=== PATIENT | male | born 1930 | race Caucasian/White ===

== ENCOUNTER 2016-09-27 11:48 | Inpatient (IN) | payer MEDICARE, OTHER ==
[~2016-09-27] VITALS: Ht 172.7 cm; Wt 51.0 kg
[2016-09-27] MEDS ORDERED: ONDANSETRON 4 MG VIAL IV PRN (12:45)
[2016-09-27] MEDS ORDERED: ACETAMINOPHEN 325 MG TAB PO PRN (12:45)
[2016-09-27] MEDS ORDERED: DOCUSATE SOD 100 MG CAP PO PRN (12:45)
[2016-09-27] MEDS ORDERED: SALINE FLUSH 10 ML FLUSH PRN (12:45)
[2016-09-27 13:25] VITALS: RESP 18
[2016-09-27 13:57] VITALS: BP_SYST 110; BP_SYST 120; RESP 16; TEMP 97.7
[2016-09-27 14:03] VITALS: BP_SYST 110
[2016-09-27 14:06] VITALS: BP_SYST 109; BP_SYST 110; BP_SYST 112
[2016-09-27] MEDS ORDERED: MONTELUKAST 10 MG TAB PO PRN (14:10)
[2016-09-27 14:11] VITALS: BMI 17.9
[2016-09-27] MEDS: NEB-BUDESONIDE 0.5 MG INH SCH ×2 (14:14→18:29)
[2016-09-27] MEDS ORDERED: MISSING DOSE XX ONE (14:45)
[2016-09-27] MEDS: Furosemide 40 MG/4 ML VIAL IV SCH (15:00)
[2016-09-27] MEDS: HCTZ 12.5 MG CAP PO SCH (15:01)
[2016-09-27] MEDS: ASPIRIN 81 MG CHEW TAB PO SCH (15:01)
[2016-09-27] MEDS: DIGOXIN 0.125 MG TAB PO SCH (15:02)
[2016-09-27] MEDS: NEB-XOPENEX 0.63 MG/3 ML INH SCH ×2 (16:10→18:29)
[2016-09-27 19:42] VITALS: BP_SYST 95; RESP 18; TEMP 97.9
[2016-09-27] MEDS: TAMSULOSIN 0.4 MG CAP PO SCH (20:59)
[2016-09-27] MEDS: Finasteride 5 MG TAB PO SCH (20:59)
[2016-09-27] MEDS: SALINE FLUSH 10 ML FLUSH SCH (20:59)
[2016-09-27 23:20] VITALS: BP_SYST 101; RESP 20; TEMP 97.6
[2016-09-28] VITALS (7 sets, daily range): BP systolic 92–120; RESP 16–20; TEMP 97.4–98.7; Ht 172.7 cm; Wt 51.0 kg
[2016-09-28] MEDS: SODIUM CHLORIDE 0.9% FLUSH BAG 500 ML IV SCH (06:00)
[2016-09-28] MEDS: NEB-BUDESONIDE 0.5 MG INH SCH ×2 (06:51→18:22)
[2016-09-28] MEDS: NEB-XOPENEX 0.63 MG/3 ML INH SCH ×3 (06:51→22:37)
[2016-09-28] MEDS: HCTZ 12.5 MG CAP PO SCH (08:46)
[2016-09-28] MEDS: ENOXAPARIN 30 MG/0.3 ML SYR SUBQ SCH (08:53)
[2016-09-28] MEDS: SALINE FLUSH 10 ML FLUSH SCH ×2 (08:53→20:24)
[2016-09-28] MEDS: Furosemide 40 MG/4 ML VIAL IV SCH ×2 (08:53→21:10)
[2016-09-28] MEDS: DIGOXIN 0.125 MG TAB PO SCH (12:24)
[2016-09-28] MEDS ORDERED: METOLAZONE 2.5 MG TAB PO ONE (15:55)
[2016-09-28] MEDS: Finasteride 5 MG TAB PO SCH (20:24)
[2016-09-28] MEDS: TAMSULOSIN 0.4 MG CAP PO SCH (20:24)
[2016-09-29] MEDS: SODIUM CHLORIDE 0.9% FLUSH BAG 500 ML IV SCH (02:29)
[2016-09-29 03:00] VITALS: BP_SYST 101; RESP 18; TEMP 97.5
[2016-09-29] MEDS: NEB-XOPENEX 0.63 MG/3 ML INH SCH ×2 (07:33→14:44)
[2016-09-29] MEDS: NEB-BUDESONIDE 0.5 MG INH SCH (07:33)
[2016-09-29 07:36] VITALS: BP_SYST 108; RESP 20
[2016-09-29] MEDS: ENOXAPARIN 30 MG/0.3 ML SYR SUBQ SCH (07:53)
[2016-09-29] MEDS ORDERED: METOLAZONE 5 MG TAB PO ONE (07:55)
[2016-09-29] MEDS: ASPIRIN 81 MG CHEW TAB PO SCH (07:55)
[2016-09-29] MEDS: SALINE FLUSH 10 ML FLUSH SCH (07:55)
[2016-09-29] MEDS: Furosemide 40 MG/4 ML VIAL IV SCH ×2 (07:55→15:50)
[2016-09-29] MEDS ORDERED: FOLIC ACID 1 MG TAB PO SCH (09:00)
[2016-09-29] MEDS ORDERED: CYANOCOBALAMIN 1000 MCG/ML VIAL IM SCH (09:00)
[2016-09-29 11:37] VITALS: BP_SYST 106; RESP 18; TEMP 97.8
[2016-09-29] MEDS: DIGOXIN 0.125 MG TAB PO SCH (11:43)
[2016-09-29 15:57] VITALS: BP_SYST 112; TEMP 97.9
== END 2016-09-29 16:57 | disposition home or self-care (01) | DRG 291 ==
LOC: ENRESERVTM → ENRESERVDT → ENPENDDIS 12:41 → TBA 12:41 → 4THE 13:06
PROVIDERS: ADMIT Internal Medicine; ATTEND Internal Medicine
PROC: 0W9B3ZX Drainage of Left Pleural Cavity, Percutaneous Approach, Diagnostic (ICD-10-PCS; principal; 2016-09-27)
DX: I11.0 Hypertensive heart disease with heart failure (principal); J96.01 Acute respiratory failure with hypoxia; J90 Pleural effusion, not elsewhere classified; D58.9 Hereditary hemolytic anemia, unspecified; I27.2 Other secondary pulmonary hypertension; K90.9 Intestinal malabsorption, unspecified; I50.33 Acute on chronic diastolic (congestive) heart failure; I35.0 Nonrheumatic aortic (valve) stenosis; I07.1 Rheumatic tricuspid insufficiency; I48.2 Chronic atrial fibrillation; Z91.14 Patient's other noncompliance with medication regimen; R16.1 Splenomegaly, not elsewhere classified; E03.9 Hypothyroidism, unspecified; N40.0 Benign prostatic hyperplasia without lower urinary tract symptoms; Z79.82 Long term (current) use of aspirin; Z87.891 Personal history of nicotine dependence
CPT/HCPCS: 36600; 71010; 71020; 80048; 80053; 80061; 81003; 82150; 82550; 82607; 82728; 82746; 82803; 82945; 83540; 83615; 83735; 83880; 83986; 84155; 84439; 84443; 84466; 84484; 85025; 85046; 87071; 87102; 87116; 87205; 87206; 88108; 89051; 93005; 93306; 94640; 94799; 99223; 99232

== ENCOUNTER 2016-10-01 17:25 | Inpatient (IN) | payer MEDICARE, OTHER ==
[~2016-10-01] VITALS: Ht 172.7 cm; Wt 50.1 kg
[2016-10-01] MEDS ORDERED: ASPIRIN 81 MG CHEW TAB ONE (17:40)
[2016-10-01] MEDS ORDERED: ENOXAPARIN 40 MG/0.4 ML SYR SUBQ STA (21:39)
[2016-10-01] MEDS ORDERED: MORPHINE 2 MG/ML SYR IV PRN (21:40)
[2016-10-01] MEDS ORDERED: SALINE FLUSH 10 ML FLUSH PRN (21:40)
[2016-10-01] MEDS ORDERED: NITROGLYCERIN 50 MG/250 ML IV PRN (21:40)
[2016-10-01] MEDS ORDERED: ASPIRIN 81 MG CHEW TAB PO ONE (21:40)
[2016-10-01] MEDS ORDERED: TRAMADOL 50 MG TAB PO PRN (21:40)
[2016-10-01] MEDS ORDERED: ONDANSETRON 4 MG VIAL IV PRN (21:40)
[2016-10-01] MEDS ORDERED: LORAZEPAM 0.5 MG TAB PO PRN (21:40)
[2016-10-01] MEDS ORDERED: TEMAZEPAM 7.5 MG CAP PO PRN (21:40)
[2016-10-01] MEDS ORDERED: DOCUSATE SOD 100 MG CAP PO PRN (21:40)
[2016-10-01] MEDS ORDERED: SODIUM CHLORIDE 0.9% FLUSH BAG 500 ML IV PRN (21:40)
[2016-10-01] MEDS ORDERED: NITROGLYCERIN SL 0.4 MG TAB SL PRN (21:40)
[2016-10-01] MEDS ORDERED: ENOXAPARIN 60 MG/0.6 ML SYR SUBQ ONE (21:48)
[2016-10-01 22:47] VITALS: BP_SYST 101; RESP 16; TEMP 97.8; Ht 172.7 cm; Wt 50.1 kg
[2016-10-01 22:48] VITALS: BP_SYST 130
[2016-10-01] MEDS ORDERED: MONTELUKAST 10 MG TAB PO PRN (23:15)
[2016-10-01] MEDS: NEB-BROVANA 15 MCG/2 ML INH SCH (23:15)
[2016-10-01] MEDS: NEB-BUDESONIDE 0.5 MG INH SCH (23:15)
[2016-10-01] MEDS: Finasteride 5 MG TAB PO SCH (23:33)
[2016-10-01] MEDS: TAMSULOSIN 0.4 MG CAP PO SCH (23:33)
[2016-10-01] MEDS: NITROGLYCERIN 2% OINT 1 INCH PKT TOPICAL SCH (23:56)
[2016-10-01] MEDS: METOPROLOL TART 25 MG TAB PO SCH (23:56)
[2016-10-02] VITALS (7 sets, daily range): BP systolic 83–96; RESP 16–20; TEMP 97.6–98
[2016-10-02] MEDS: NITROGLYCERIN 2% OINT 1 INCH PKT TOPICAL SCH ×4 (05:29→23:20)
[2016-10-02] MEDS: NEB-BUDESONIDE 0.5 MG INH SCH ×2 (07:12→18:59)
[2016-10-02] MEDS: NEB-BROVANA 15 MCG/2 ML INH SCH ×2 (07:12→18:59)
[2016-10-02] MEDS: SALINE FLUSH 10 ML FLUSH SCH ×2 (08:54→20:16)
[2016-10-02] MEDS: METOPROLOL TART 25 MG TAB PO SCH ×2 (08:54→20:14)
[2016-10-02] MEDS: ASPIRIN EC 81 MG TAB PO SCH (08:54)
[2016-10-02] MEDS: ENOXAPARIN 40 MG/0.4 ML SYR SUBQ SCH ×2 (10:29→20:15)
[2016-10-02] MEDS: Finasteride 5 MG TAB PO SCH (20:15)
[2016-10-02] MEDS: TAMSULOSIN 0.4 MG CAP PO SCH (20:15)
[2016-10-02] MEDS: ACETAMINOPHEN 325 MG TAB PO PRN (22:44)
[2016-10-03 04:33] VITALS: BP_SYST 99; RESP 16; TEMP 97.6
[2016-10-03] MEDS: NITROGLYCERIN 2% OINT 1 INCH PKT TOPICAL SCH (05:51)
[2016-10-03 07:13] VITALS: BP_SYST 97; RESP 16; TEMP 97.6
[2016-10-03] MEDS: NEB-BROVANA 15 MCG/2 ML INH SCH ×2 (07:28→19:15)
[2016-10-03] MEDS: NEB-BUDESONIDE 0.5 MG INH SCH ×2 (07:28→19:15)
[2016-10-03] MEDS: ENOXAPARIN 40 MG/0.4 ML SYR SUBQ SCH (07:48)
[2016-10-03] MEDS: METOPROLOL TART 25 MG TAB PO SCH (07:49)
[2016-10-03] MEDS: SALINE FLUSH 10 ML FLUSH SCH ×2 (07:49→20:30)
[2016-10-03] MEDS: ASPIRIN EC 81 MG TAB PO SCH (07:51)
[2016-10-03] MEDS ORDERED: Furosemide 20 MG/2 ML VIAL IV ONE (08:25)
[2016-10-03 11:14] VITALS: BP_SYST 93; RESP 16; TEMP 98
[2016-10-03] MEDS: NITROGLYCERIN 0.2 MG/HR PATCH TRANSDERM SCH (11:49)
[2016-10-03 15:00] VITALS: BP_SYST 80; RESP 16; TEMP 97.7
[2016-10-03 20:01] VITALS: BP_SYST 94; RESP 16; TEMP 97.9
[2016-10-03] MEDS: Finasteride 5 MG TAB PO SCH (20:30)
[2016-10-03] MEDS: TAMSULOSIN 0.4 MG CAP PO SCH (20:30)
[2016-10-03] MEDS: Carvedilol 6.25 MG TAB PO SCH (20:31)
[2016-10-03] MEDS: ACETAMINOPHEN 325 MG TAB PO PRN (22:18)
[2016-10-03 22:40] VITALS: BP_SYST 98; RESP 16; TEMP 97.7
[2016-10-04 02:50] VITALS: BP_SYST 101; RESP 16; TEMP 97.8
[2016-10-04 07:00] VITALS: BP_SYST 106; RESP 16; TEMP 97.4
[2016-10-04] MEDS: NEB-BUDESONIDE 0.5 MG INH SCH ×2 (07:09→19:35)
[2016-10-04] MEDS: NEB-BROVANA 15 MCG/2 ML INH SCH ×2 (07:09→19:35)
[2016-10-04] MEDS: SALINE FLUSH 10 ML FLUSH SCH ×2 (07:59→21:02)
[2016-10-04] MEDS: ASPIRIN EC 81 MG TAB PO SCH (07:59)
[2016-10-04] MEDS: ENOXAPARIN 30 MG/0.3 ML SYR SUBQ SCH (08:00)
[2016-10-04] MEDS: NITROGLYCERIN 0.2 MG/HR PATCH TRANSDERM SCH (08:03)
[2016-10-04] MEDS: Carvedilol 6.25 MG TAB PO SCH ×2 (08:09→21:01)
[2016-10-04] MEDS: Furosemide 40 MG TAB PO SCH (08:57)
[2016-10-04 11:50] VITALS: BP_SYST 93; RESP 16; TEMP 98.5
[2016-10-04 15:00] VITALS: BP_SYST 96; RESP 16; TEMP 98.4
[2016-10-04 20:45] VITALS: BP_SYST 92; RESP 16; TEMP 98.3
[2016-10-04] MEDS: Finasteride 5 MG TAB PO SCH (21:01)
[2016-10-04] MEDS: TAMSULOSIN 0.4 MG CAP PO SCH (21:01)
[2016-10-04 23:59] VITALS: BP_SYST 96; RESP 18; TEMP 97.7
[2016-10-05] VITALS (10 sets, daily range): BP systolic 86–126; RESP 16–18; TEMP 97.4–98.3
[2016-10-05] MEDS: NEB-BUDESONIDE 0.5 MG INH SCH ×2 (07:31→19:00)
[2016-10-05] MEDS: NEB-BROVANA 15 MCG/2 ML INH SCH ×2 (07:31→19:00)
[2016-10-05] MEDS: ASPIRIN EC 81 MG TAB PO SCH (08:04)
[2016-10-05] MEDS: Carvedilol 6.25 MG TAB PO SCH ×2 (08:04→20:23)
[2016-10-05] MEDS: Furosemide 40 MG TAB PO SCH (08:04)
[2016-10-05] MEDS: SALINE FLUSH 10 ML FLUSH SCH (08:04)
[2016-10-05] MEDS: NITROGLYCERIN 0.2 MG/HR PATCH TRANSDERM SCH (08:05)
[2016-10-05] MEDS ORDERED: LORAZEPAM 0.5 MG TAB PO PRN (08:45)
[2016-10-05] MEDS ORDERED: ACETAMINOPHEN 325 MG TAB PO PRN (08:45)
[2016-10-05] MEDS ORDERED: DIPHENHYDRAMINE 25 MG CAP PO ONE (08:45)
[2016-10-05] MEDS ORDERED: TEMAZEPAM 15 MG CAP PO PRN (08:45)
[2016-10-05] MEDS ORDERED: DIAZEPAM 5 MG TAB PO ONE (08:45)
[2016-10-05] MEDS ORDERED: TEMAZEPAM 7.5 MG CAP PO PRN (08:45)
[2016-10-05] MEDS ORDERED: DEXTROSE 5% SALINE 0.45% 1,000 ML IV ONE (08:45)
[2016-10-05] MEDS: DIGOXIN 0.125 MG TAB PO SCH (12:00)
[2016-10-05] MEDS ORDERED: MIDAZOLAM 2 MG/2 ML INJ IV ONE (16:00)
[2016-10-05] MEDS ORDERED: ONDANSETRON 4 MG VIAL IV PRN (16:00)
[2016-10-05] MEDS ORDERED: SALINE FLUSH 10 ML FLUSH PRN (16:00)
[2016-10-05] MEDS ORDERED: DEXTROSE 5% SALINE 0.45% 1,000 ML IV SCH (16:00)
[2016-10-05] MEDS ORDERED: MORPHINE 2 MG/ML SYR IV ONE (16:00)
[2016-10-05] MEDS ORDERED: MIDAZOLAM 2 MG/2 ML INJ IV PRN (16:00)
[2016-10-05] MEDS ORDERED: LIDOCAINE 2% 20 ML SUBQ ONE (16:00)
[2016-10-05] MEDS ORDERED: ATROPINE 1 MG/10 ML SYRINGE IV PRN (16:00)
[2016-10-05] MEDS ORDERED: SALINE FLUSH 10 ML FLUSH SCH (20:00)
[2016-10-05] MEDS: Finasteride 5 MG TAB PO SCH (20:24)
[2016-10-05] MEDS: TAMSULOSIN 0.4 MG CAP PO SCH (20:24)
[2016-10-05] MEDS ORDERED: MIDAZOLAM 2 MG/2 ML INJ ONE (20:34)
[2016-10-05] MEDS ORDERED: hePARIN 1,000 UNITS/1 ML VIAL ONE (20:34)
[2016-10-05] MEDS ORDERED: LIDOCAINE 2% 20 ML ONE (20:34)
[2016-10-06 03:35] VITALS: BP_SYST 99; RESP 16; TEMP 97.8
[2016-10-06] MEDS ORDERED: SODIUM CHLORIDE 0.9% FLUSH BAG 500 ML IV SCH (06:00)
[2016-10-06] MEDS: NEB-BUDESONIDE 0.5 MG INH SCH (07:37)
[2016-10-06] MEDS: NEB-BROVANA 15 MCG/2 ML INH SCH (07:37)
[2016-10-06 08:20] VITALS: BP_SYST 99; RESP 18; TEMP 97.5
[2016-10-06] MEDS: ASPIRIN EC 81 MG TAB PO SCH (08:32)
[2016-10-06] MEDS: ENOXAPARIN 30 MG/0.3 ML SYR SUBQ SCH (08:33)
[2016-10-06] MEDS: NITROGLYCERIN 0.2 MG/HR PATCH TRANSDERM SCH (08:33)
[2016-10-06] MEDS ORDERED: Furosemide 40 MG TAB PO SCH (09:00)
[2016-10-06 11:22] VITALS: BP_SYST 112; RESP 18; TEMP 97.6
[2016-10-06] MEDS: DIGOXIN 0.125 MG TAB PO SCH (12:00)
[2016-10-06] MEDS ORDERED: CYANOCOBALAMIN 1000 MCG/ML VIAL IM SCH (14:20)
[2016-10-06] MEDS ORDERED: EPOETIN 40,000 UNIT VIAL SUBQ ONE (14:20)
[2016-10-06] MEDS ORDERED: SODIUM CHLORIDE 0.9% 250 ML IV ONE (14:20)
[2016-10-06 15:35] VITALS: BP_SYST 97; RESP 20; TEMP 97.8
[2016-10-06 16:35] VITALS: BP_SYST 97; RESP 20; TEMP 97.8
[2016-10-06 16:41] VITALS: BP_SYST 97; RESP 20; TEMP 97.8
[2016-10-07] MEDS ORDERED: Furosemide 20 MG TAB PO SCH (09:00)
== END 2016-10-06 18:59 | disposition home or self-care (01) | DRG 286 ==
LOC: ENRESERVDT → ENRESERVTM → ER 17:25 → EMR 21:03 → ENPENDDIS 21:03 → 4THW 22:40
PROVIDERS: ADMIT Internal Medicine; ATTEND Internal Medicine
PROC: 4A023N8 Measurement of Cardiac Sampling and Pressure, Bilateral, Percutaneous Approach (ICD-10-PCS; principal; 2016-10-05)
PROC: B2151ZZ Fluoroscopy of Left Heart using Low Osmolar Contrast (ICD-10-PCS; 2016-10-05)
PROC: B2111ZZ Fluoroscopy of Multiple Coronary Arteries using Low Osmolar Contrast (ICD-10-PCS; 2016-10-05)
DX: I25.110 Atherosclerotic heart disease of native coronary artery with unstable angina pectoris (principal); I50.33 Acute on chronic diastolic (congestive) heart failure; R64 Cachexia; I27.2 Other secondary pulmonary hypertension; D58.9 Hereditary hemolytic anemia, unspecified; J44.1 Chronic obstructive pulmonary disease with (acute) exacerbation; Z68.1 Body mass index [BMI] 19.9 or less, adult; N18.3 Chronic kidney disease, stage 3 (moderate); I48.2 Chronic atrial fibrillation; Z91.19 Patient's noncompliance with other medical treatment and regimen; E03.9 Hypothyroidism, unspecified; I35.0 Nonrheumatic aortic (valve) stenosis
CPT/HCPCS: 36415; 71010; 80048; 80053; 80061; 80162; 82550; 82553; 83735; 83880; 84484; 85025; 85610; 85730; 93005; 93460; 94640; 94799; 96372